=== PATIENT | male | born 1950 | race Caucasian/White ===

== ENCOUNTER 2016-03-23 08:40 | Outpatient (CLI) | payer MEDICARE, OTHER | END 2016-03-23 08:41 | disposition home or self-care (01) | DX: D64.9 Anemia, unspecified (principal); E55.9 Vitamin D deficiency, unspecified; Z79.899 Other long term (current) drug therapy ==

== ENCOUNTER 2017-10-09 09:40 | Outpatient (CLI) | payer OTHER, MEDICARE ==
[2017-10-09 15:33] LABS: BILIRUBIN,URINE NEGATIVE (NEGATIVE); GLUCOSE, URINE (UA) NEGATIVE (NEGATIVE); KETONES,URINE (UA) NEGATIVE (NEGATIVE); LEUKOCYTE ESTERASE, URINE NEGATIVE (NEGATIVE); NITRITE,URINE NEGATIVE (NEGATIVE); OCCULT BLOOD,URINE NEGATIVE (NEGATIVE); PROTEIN,URINE NEGATIVE (NEGATIVE); UROBILINOGEN,URINE 0.2 (NORMAL) E.U./dL (NORMAL)
[2017-10-09 15:34] LABS: CLARITY,URINE CLEAR (CLEAR)
[2017-10-09 15:52] LABS: ALBUMIN 4.4 g/dL (3.2-5.5); ALBUMIN/GLOBULIN RATIO 1.8 (1.0-2.2); ALKALINE PHOSPHATASE 46 IU/L (42-121); ALT ALANINE AMINOTRANSFERASE 22 IU/L (10-60); AST ASPARTATE AMINOTRANSFERASE 20 IU/L (10-42); BILIRUBIN,TOTAL 0.8 mg/dL (0.2-1.0); BUN - BLOOD UREA NITROGEN 12 mg/dL (6-20); CALCIUM 9.4 mg/dL (8.5-10.3); CARBON DIOXIDE - CO2 31 mmol/L (21-32); CHLORIDE 101 mmol/L (101-111); CREATININE 0.8 mg/dL (0.6-1.2); GFR - MDRD 96 (>89); GLUCOSE 87 mg/dL (70-100); SODIUM 140 mmol/L (135-145); TOTAL PROTEIN 6.8 g/dL (6.7-8.2)
[2017-10-09 15:53] LABS: CRP - C-REACTIVE PROTEIN < 1.0 mg/dL (0-1.0)
[2017-10-09 16:05] LABS: PSA TOTAL 1.8 ng/mL (0.000-2.000)
[2017-10-10 12:00] LABS: BASOPHILS % (AUTO) 0.6 %; EOSINOPHILS # (AUTO) 0.2 10^3/uL (0.0-0.7); EOSINOPHILS % (AUTO) 5.1 %; HGB - HEMOGLOBIN 13.5 g/dL (14.0-18.0); LYMPHOCYTES # (AUTO) 1.2 10^3/uL (1.5-3.5); MEAN CORPUSCULAR HEMOGLOBIN 24.9 pg (27.0-31.0); MEAN CORPUSCULAR HGB CONC 32.5 g/dL (32.0-36.0); MEAN CORPUSCULAR VOLUME 76.6 fL (80.0-94.0); MEAN PLATELET VOLUME 9.4 fL (7.4-11.4); MONOCYTES # (AUTO) 0.4 10^3/uL (0.0-1.0); MONOCYTES % (AUTO) 8.3 %; NEUTROPHILS # (AUTO) 2.5 10^3/uL (1.5-6.6); PLT - PLATELET COUNT 147 10^3/uL (130-450); RED BLOOD COUNT 5.44 10^6/uL (4.70-6.10); RED CELL DISTRIBUTION WIDTH 14.6 % (12.0-15.0); WHITE BLOOD COUNT 4.3 x10^3/uL (4.8-10.8)
[2017-10-11 13:47] LABS: ANA SCREEN NEGATIVE (NEGATIVE)
== END 2017-10-09 09:41 | disposition home or self-care (01) ==
LOC: LAB.R 09:40
PROVIDERS: ATTEND Physician Assistant Medical
DX: R39.11 Hesitancy of micturition (principal); R68.82 Decreased libido; M79.1 Myalgia; F32.9 Major depressive disorder, single episode, unspecified; M25.50 Pain in unspecified joint; E55.9 Vitamin D deficiency, unspecified; Z79.899 Other long term (current) drug therapy
CPT/HCPCS: 80053; 81001; 81003; 82306; 84153; 84403; 84443; 85025; 85651; 86038; 86140; 87086

== ENCOUNTER 2017-10-19 13:55 | Outpatient (CLI) | payer MEDICARE, OTHER ==
[2017-10-19 17:03] LABS: RED BLOOD COUNT 5.53 10^6/uL (4.70-6.10)
[2017-10-19 17:37] LABS: FERRITIN 51.2 ng/mL (23.9-336.2)
== END 2017-10-19 13:56 ==
LOC: LAB.R 13:55
PROVIDERS: ATTEND Physician Assistant Medical
DX: D64.9 Anemia, unspecified (principal)
CPT/HCPCS: 82607; 82728; 83010; 83540; 85044; 86880

== ENCOUNTER 2019-10-11 10:47 | Outpatient (CLI) | payer MEDICARE, OTHER ==
[2019-10-11 11:49] LABS: BASOPHILS % (AUTO) 0.7 %; EOSINOPHILS # (AUTO) 0.2 10^3/uL (0.0-0.7); EOSINOPHILS % (AUTO) 4.9 %; HGB - HEMOGLOBIN 13.9 g/dL (14.0-18.0); LYMPHOCYTES # (AUTO) 1.3 10^3/uL (1.5-3.5); LYMPHOCYTES % (AUTO) 31.3 %; MEAN CORPUSCULAR HEMOGLOBIN 25.2 pg (27.0-31.0); MEAN CORPUSCULAR HGB CONC 31.3 g/dL (32.0-36.0); MEAN CORPUSCULAR VOLUME 80.4 fL (80.0-94.0); MEAN PLATELET VOLUME 9.9 fL (7.4-11.4); MONOCYTES # (AUTO) 0.4 10^3/uL (0.0-1.0); MONOCYTES % (AUTO) 8.7 %; NEUTROPHILS # (AUTO) 2.2 10^3/uL (1.5-6.6); NEUTROPHILS % (AUTO) 54.2 %; PLT - PLATELET COUNT 148 10^3/uL (130-450); RED BLOOD COUNT 5.52 10^6/uL (4.70-6.10); RED CELL DISTRIBUTION WIDTH 13.3 % (12.0-15.0); WHITE BLOOD COUNT 4.1 x10^3/uL (4.8-10.8)
[2019-10-11 12:07] LABS: ALBUMIN 4.8 g/dL (3.2-5.5); ALBUMIN/GLOBULIN RATIO 2.1 (1.0-2.2); CALCIUM 9.5 mg/dL (8.5-10.3); TOTAL PROTEIN 7.1 g/dL (6.7-8.2)
== END 2019-10-11 10:48 | disposition home or self-care (01) ==
LOC: LAB 10:47
PROVIDERS: ATTEND Family Medicine
DX: N52.9 Male erectile dysfunction, unspecified (principal); B00.9 Herpesviral infection, unspecified; R39.11 Hesitancy of micturition; R68.82 Decreased libido; E55.9 Vitamin D deficiency, unspecified; F32.9 Major depressive disorder, single episode, unspecified
CPT/HCPCS: 36415; 80053; 82306; 84153; 84403; 85025

== ENCOUNTER 2022-04-19 08:12 | Outpatient (CLI) | payer BC, MEDICARE ==
[2022-04-19 08:34] LABS: BASOPHILS % (AUTO) 0.8 %; EOSINOPHILS # (AUTO) 0.2 10^3/uL (0.0-0.7); EOSINOPHILS % (AUTO) 4.1 %; HCT - HEMATOCRIT 42.5 % (42.0-52.0); HGB - HEMOGLOBIN 13.3 g/dL (14.0-18.0); LYMPHOCYTES # (AUTO) 1.5 10^3/uL (1.5-3.5); LYMPHOCYTES % (AUTO) 28.5 %; MEAN CORPUSCULAR HEMOGLOBIN 24.6 pg (27.0-31.0); MEAN CORPUSCULAR HGB CONC 31.3 g/dL (32.0-36.0); MEAN CORPUSCULAR VOLUME 78.7 fL (80.0-94.0); MONOCYTES # (AUTO) 0.5 10^3/uL (0.0-1.0); MONOCYTES % (AUTO) 9.6 %; NEUTROPHILS # (AUTO) 2.9 10^3/uL (1.5-6.6); NEUTROPHILS % (AUTO) 56.8 %; PLT - PLATELET COUNT 148 10^3/uL (130-450); RED CELL DISTRIBUTION WIDTH 13.8 % (12.0-15.0); WHITE BLOOD COUNT 5.1 x10^3/uL (4.8-10.8)
[2022-04-19 08:52] LABS: ALBUMIN 4.4 g/dL (3.2-5.5); ALBUMIN/GLOBULIN RATIO 1.8 (1.0-2.2); ALKALINE PHOSPHATASE 66 IU/L (42-121); ALT ALANINE AMINOTRANSFERASE 19 IU/L (10-60); AST ASPARTATE AMINOTRANSFERASE 16 IU/L (10-42); BUN - BLOOD UREA NITROGEN 16 mg/dL (6-20); CALCIUM 9.6 mg/dL (8.5-10.3); CARBON DIOXIDE - CO2 30 mmol/L (21-32); CHLORIDE 100 mmol/L (101-111); CHOL/HDL RATIO 4.8 (<5.0); CHOLESTEROL 210 mg/dL; CREATININE 1.1 mg/dL (0.6-1.2); GFR - MDRD 66 (>89); GLUCOSE 103 mg/dL (70-100); HDL CHOLESTEROL 44 mg/dL; LDL CHOLESTEROL,CALCULATED 147 mg/dL; LDL/HDL RATIO 3.3 (<3.6); POTASSIUM 3.9 mmol/L (3.5-5.0); SODIUM 140 mmol/L (135-145); TOTAL PROTEIN 6.8 g/dL (6.7-8.2); TRIGLYCERIDES 96 mg/dL; VLDL CHOLESTEROL 19 mg/dL
[2022-04-19 09:02] LABS: THYROID STIMULATING HORMONE 2.51 uIU/mL (0.34-5.60)
== END 2022-04-19 08:13 | disposition home or self-care (01) ==
LOC: LAB 08:12
PROVIDERS: ATTEND Family Medicine
DX: D64.9 Anemia, unspecified (principal); F12.10 Cannabis abuse, uncomplicated; M65.4 Radial styloid tenosynovitis [de Quervain]; N52.9 Male erectile dysfunction, unspecified; B00.9 Herpesviral infection, unspecified; E55.9 Vitamin D deficiency, unspecified; F32.A Depression, unspecified
CPT/HCPCS: 36415; 80053; 80061; 83721; 84153; 84443; 85025

== ENCOUNTER 2022-11-16 08:53 | Day surgery (SDC) | payer MEDICARE, BC ==
[2022-11-16] MEDS ORDERED: LACTATED RINGERS 1,000 ML IV ONE ×2 (09:03→09:22)
--- NOTE | 2022-11-16 09:27 | ANESTHESIA ---
Pre-Anesthesia VS, & Labs - Diagnosis screening - Procedure colonoscopy Height: 5 ft 9.5 in Weight (kg): 78.9 kg Body Mass Index: 25.3 BMI Classification: Overweight - NPO >8 hours - Lab Results Lab results reviewed: Yes Home Medications and Allergies Home Medications: Ambulatory Orders buPROPion [Wellbutrin Xl] 1 tab PO DAILY 11/15/22 buPROPion [Wellbutrin Xl] 1 tab PO DAILY 11/15/22 Allergies/Adverse Reactions: Allergies Allergy/AdvReac Type Severity Reaction Status Date / Time No Known Drug Allergies Allergy Verified 11/15/22 13:14 Anes History & Medical History - Anesthetic History Anesthesia Complications: reports: No previous complications Family history of Anesthesia Complications: Denies Family history of Malignant Hyperthermia: Denies - Medical History Cardiovascular: reports: None Pulmonary: reports: None Gastrointestinal: reports: None Urinary: reports: None Neuro: reports: None Musculoskeletal: reports: None Endocrine/Autoimmune: reports: None Blood Disorders: reports: None Skin: reports: None Smoking Status: Never smoker Psychosocial: reports: Cannabis - Surgical History Orthopedic: reports: Other Exam General: Alert, Oriented x3, Cooperative Dental: WNL Mouth Openin Fingerbreadth Neck Mobility: Normal Mallampati classification: II Thyromental Distance: 4-6 cm Respiratory: Lungs clear Cardiovascular: Regular rate Plan Anesthesia Type: General, MAC Consent for Procedure(s) Verified and Reviewed: Yes Code Status: Attempt Resuscitation ASA classification: 2-Mild systemic disease Is this case an emergency?: No
[2022-11-16] MEDS ORDERED: PROPOFOL 500 MG/50 ML 500 MG/50 ML VIAL ONE (10:02)
[2022-11-16 11:12] VITALS: BP 121/77; O2SAT 99
--- NOTE | 2022-11-16 11:42 | ANESTHESIA POST OP EVALUATION ---
Anesthesia Post Eval - Post Anesthesia Eval Vitals: Last Vital Signs Temp 36.2 C L 11/16/22 11:03 Pulse 63 11/16/22 11:03 Resp 19 11/16/22 11:03 BP 121/77 11/16/22 11:03 Pulse Ox 99 11/16/22 11:03 O2 Flow Rate CV Function Including HR & BP: Stable Pain Control: Satisfactory Nausea & Vomiting: Negative Mental Status: Baseline Respiratory Status: Airway Patent Hydration Status: Satisfactory Anesthesia Complications: None
== END 2022-11-16 08:54 | disposition home or self-care (01) ==
LOC: SDS 08:53
PROVIDERS: ATTEND Surgery
DX: Z12.11 Encounter for screening for malignant neoplasm of colon (principal); K64.3 Fourth degree hemorrhoids
CPT/HCPCS: G0121; J7120

== ENCOUNTER 2023-07-12 12:02 | Emergency (ER) | payer MEDICARE, BC ==
[2023-07-12 12:08] VITALS: BP 150/76; O2SAT 94
[2023-07-12] MEDS: TETANUS/DIPHTHERIA/PERTUSSIS 0.5 ML SYRINGE IM ONE (13:59)
[2023-07-12] MEDS: BUFFERED LIDOCAINE 10 ML SYRINGE SUBQ STA (13:59)
--- NOTE | 2023-07-12 13:59 | ED Physician Documentation ---
PD HPI UPPER EXT INJURY - Stated complaint Stated Complaint: LT HAND FINGER LAC - Chief complaint Chief Complaint: Laceration - History obtained from History obtained from: Patient (Right-handed gentleman cut his left thumb with a saw at home just prior to arrival. No other injuries. Tetanus is not up-to-date.) PD PAST MEDICAL HISTORY - Past Medical History Past Medical History: Yes Cardiovascular: None Respiratory: None Neuro: None Endocrine/Autoimmune: None GI: None : None HEENT: None Psych: Depression Musculoskeletal: None Derm: None - Past Surgical History Past Surgical History: Yes Ortho: Other - Present Medications Home Medications: Ambulatory Orders Medication Instructions Recorded Confirmed buPROPion [Wellbutrin Xl] 1 tab PO DAILY 11/15/22 11/16/22 cephALEXin [Keflex] 500 mg PO Q6H #20 cap 07/12/23 - Allergies Allergies/Adverse Reactions: Allergies Allergy/AdvReac Type Severity Reaction Status Date / Time bee venom protein (honey bee) Allergy Respiratory Verified 07/12/23 12:04 grass pollen AdvReac Respiratory Verified 07/12/23 12:04 - Social History Does the pt smoke?: No Smoking Status: Never smoker Does the pt drink ETOH?: No Does the pt have substance abuse?: No - Immunizations Immunizations are current?: No Immunizations: TDAP >10years/unknown PD ED PE NORMAL - Vitals Vital signs reviewed: Yes - General General: Alert and oriented X 3, No acute distress - Extremities Extremities: Other (Linear laceration over the dorsum of the left thumb at the level of the interphalangeal joint with distal neurovascular intact. Tendon function will be tested after anesthesia.) - Neuro Neuro: Alert and oriented X 3, Normal speech Results - Vitals Vitals: Vital Signs - 24 hr 07/12/23 12:04 Temperature 36.5 C Heart Rate 60 Respiratory 16 Rate Blood Pressure 150/76 H O2 Saturation 94 Oxygen O2 Source Room air - Rads (name of study) L finger Relevant Findings:: Final report received (Three-view x-ray of the left thumb demonstrates an extra-articular fracture of the first distal phalanx with degenerative changes as well.), EMP independent interpretation of test Procedures - Laceration (location) L thumb Length in cm: 2 Wound type: Curved, Into subcut fat Neurovascular status: Sensory intact, Motor intact Tendon involvement: Tendon intact Anesthesia: Lidocaine 1%, With bicarb (Digital block with excellent anesthesia) Wound preparation: Irrigated copiously NS Skin layer closure: Nylon, Steri strips, Size #-0 - enter number (4-0) Other: Patient tolerated well, No complications, Neurovascular intact, Tetanus booster given - Splint (location) - Minor L thumb Splint applied by: Tech Type of splint: Metal foam finger splint PD Medical Decision Making - ED course ED course: 72-year-old gentleman with a saw injury to the left, nondominant thumb. He has an open fracture and a laceration. It was thoroughly irrigated, closed with sutures and dressed and splinted. Started on Keflex and advised orthopedic follow-up and wound care. Despite the site of the injury and the x-ray, there is no clinical evidence of extensor tendon involvement. Departure - Departure Disposition: 01 Home, Self Care Clinical Impression: Open finger fracture Condition: Good Record reviewed to determine appropriate education?: Yes Instructions: ED Fx Finger Open Prescriptions: cephALEXin [Keflex] 500 mg PO Q6H #20 cap Comments: I sent your prescription electronically to the [facility] in [place]. Follow- up with our orthopedic surgeons in about a week for wound check and likely in 2 weeks for suture removal. Return for new or worsening symptoms. Come back for any signs of infection which would include: Redness, swelling, drainage, increased pain, or fevers. In the meantime,You can wash it soap and water. Keep it covered and moist with bacitracin ointment which is available over the counter; avoid neosporin.Then reapply the splint especially when you are active. You do not have to wear it all the time if you are inactive or sleeping. Forms: PCP List Discharge Date/Time: 07/12/23 14:37
[2023-07-12] MEDS: cephALEXin 250 MG CAPSULE PO STA (14:34)
--- NOTE | 2023-07-12 14:35 | XRAY Report ---
PROCEDURE: Finger(s) LT INDICATIONS: finger inj TECHNIQUE: AP hand, 2 views of the first finger(s) acquired. COMPARISON: None. FINDINGS: Bones: Acute, mildly displaced, transverse, extra-articular fracture of the first distal phalanx. Mo derate first MCP and IP joint space narrowing and juxta-articular osteophytosis. Mild diffuse IP join t space narrowing and juxta-articular osteophytosis. No suspicious bony lesions. Soft tissues: No suspicious soft tissue calcifications or masses. Soft tissue swelling of the firs t digit. IMPRESSION: 1.Acute, mildly displaced, transverse, extra-articular fracture of the first distal phalanx. 2.Mild to moderate diffuse degenerative changes. Reviewed by: Aleksander Burkett MD on 07/12/2023 2:34 PM PDT Approved by: Aleksander Burkett MD on 07/12/2023 2:34 PM PDT Station ID: [id number]
== END 2023-07-12 14:37 | disposition home or self-care (01) ==
LOC: ED 12:02
DX: S62.522B Displaced fracture of distal phalanx of left thumb, initial encounter for open fracture (principal); W27.0XXA Contact with workbench tool, initial encounter; Y92.009 Unspecified place in unspecified non-institutional (private) residence as the place of occurrence of the external cause; Z79.899 Other long term (current) drug therapy; Z23 Encounter for immunization
CPT/HCPCS: 12001; 90471; 99283; 99284